=== PATIENT | male | born 1970 | race Caucasian/White ===

== ENCOUNTER → 2017-07-05 | Outpatient (CLI) | payer OTHER ==
--- NOTE | 2017-07-05 12:30 | DIAGNOSTIC IMAGING REPORT ---
ULTRASOUND TESTES AND SCROTUM CLINICAL HISTORY: Epididymitis/orchitis. COMPARISON STUDY: Scrotal ultrasound dated 08/13/2006. TECHNIQUE: Real-time, grayscale, and color Doppler sonography of the testes and scrotum is performed. Images are reviewed in the transverse and longitudinal planes. FINDINGS: The testes are normal in size and homogeneous in echotexture. The right testis measures 4.0 x 2.0 x 3.3 cm and the left testis measures 4.3 x 2.7 x 3.0 cm. No intratesticular mass is seen. A calcification is noted in the left testis. Testicular blood flow is normal and symmetric. Normal Doppler waveforms are identified in both testes. The epididymal heads are normal in appearance. A 2 mm epididymal head cyst is noted on the left. No hyperemia is seen on color imaging. No varicocele or hydrocele is seen. IMPRESSION: Unremarkable sonographic assessment of the testes and scrotum. Electronically signed by: Vic Acosta M.D. 07/05/2017 12:29 PM Dictated Date/Time: 07/05/2017 12:26 PM
--- NOTE | 2017-07-05 12:36 | DIAGNOSTIC IMAGING REPORT ---
ABDOMEN FOR HERNIA CLINICAL HISTORY: Orchitis and epididymitis. Evaluate for inguinal hernia. COMPARISON STUDY: No previous studies for comparison. FINDINGS: A few benign right inguinal lymph node were noted. No right or left inguinal hernia was identified. IMPRESSION: No right or left inguinal hernia identified by sonography. Electronically signed by: Gray Caldwell M.D. 07/05/2017 12:35 PM Dictated Date/Time: 07/05/2017 12:33 PM
== END | disposition home or self-care (01) ==
LOC: C.ULTR 11:31
PROVIDERS: ATTEND Urology
DX: N45.3 Epididymo-orchitis (principal)

== ENCOUNTER → 2017-07-30 | Outpatient (CLI) | payer OTHER ==
--- NOTE | 2017-07-30 11:02 | DIAGNOSTIC IMAGING REPORT ---
ABDOMEN AND PELVIS CT WITHOUT CONTRAST CT DOSE: 423.46 mGy.cm HISTORY: Lower abdominal pain. DYSURIA TECHNIQUE: Multiaxial CT images of the abdomen and pelvis were performed without contrast. A dose lowering technique was utilized adhering to the principles of ALARA. COMPARISON STUDY: None. FINDINGS: The lung bases are clear. No pneumoperitoneum. No pneumatosis. Evidence for prior vasectomy. No suspicious lytic or blastic osseous lesions. Tiny fat-containing umbilical hernia. The unenhanced liver, gallbladder, spleen, adrenal glands, pancreas, and left kidney are unremarkable. There is a 1 mm stone within the upper pole the right kidney. No ureteral stones. No hydronephrosis. Normal bladder. No retroperitoneal lymphadenopathy. No pelvic free fluid. The prostate gland is normal in size. Suboptimal evaluation for bowel pathology due to the lack of intravenous and oral contrast. However, there is no definite bowel wall thickening or obstruction. Normal appendix. IMPRESSION: 1. A punctate stone within the upper pole of the right kidney. No ureteral stones. No hydronephrosis. 2. No bowel wall thickening or obstruction. 3. Normal appendix. 4. Tiny fat-containing umbilical hernia. Electronically signed by: Brandin Sepulveda M.D. 07/30/2017 11:00 AM Dictated Date/Time: 07/30/2017 10:50 AM
== END | disposition home or self-care (01) ==
LOC: C.CTS 10:05
PROVIDERS: ATTEND Urology
DX: R30.0 Dysuria (principal); R10.9 Unspecified abdominal pain

== ENCOUNTER 2023-10-25 06:04 | Observation (INO) ==
--- NOTE | 2023-10-14 15:38 | Anesthesiology Consultation ---
Date of Service October 14, 2023 Assessment & Plan (1) Encounter for pre-operative examination: - check type and screen STAT am DOS. - medical clearance 09/20/23: "...cervical fusion...no symptoms of chest pain at rest or with exertion, dyspnea at rest or with exertion...reasonable fadi operative risk to proceed..." - Per clinical nurse educator on 10/14/23: No known infectious disease contacts, current infectious disease symptoms in past 10 days or COVID positive test result in the past 30 days. Chart Review Chart Review: Acceptable Risk for Surgery and Patient NOT seen in Pre Admission Testing History Surgery Operation Date: 10/25/23 10:05 Proposed Procedures p C4-C5 and C7-T1 Anterior Cervical Discectomy and Fusion Hardware Removal C5-C7 - Benedicto Lovell, Height/Weight Height: 5 ft 9 in Weight: 90.718 kg Allergies Allergy/AdvReac Type Severity Reaction Status Date / Time No Known Drug Allergies Allergy Verified 10/14/23 14:55 Medications Home Medications Medication Instructions Recorded Confirmed Last Taken atorvastatin 20 mg tablet 20 mg PO HS 10/14/23 10/14/23 Unknown Past Medical History Medical History (Updated 10/14/23 @ 15:33 by Jennifer Noland PA-C) Cervical facet syndrome Cervicalgia ROM "is limited to the left side" Chronic scapular pain Dysphagia "only with large pills, has trouble swallowing since neck surgery" Hyperlipidemia IBS (irritable bowel syndrome) Nausea after anesthesia Neuropathy of left suprascapular nerve Past Family History Family History Father Hearing loss Past Surgical History Surgical History History of esophagogastroduodenoscopy (EGD) History of mandibular surgery early , no limitations w/his jaw since surgery Hx of anterior cruciate ligament tear reconstruction left knee Hx of arthroscopy of right knee meniscus repair Hx of colonoscopy age 43 for last one S/P cervical spinal fusion C4-C6, ~2011 Social History Smoking Status: Never smoker Do You Dip or Chew Tobacco: No Hx Alcohol Use: Yes Alcohol type: beer alcohol intake frequency: holidays/special occasions only Hx Substance Use: No substance use type: does not use Lab Results Anesthesia Preop Results Results Anesthesia Widget: WBC 7.22 K/ul (4.8-10.8) 09/18/23 Hgb 15.6 g/dl (14.0-18.0) 09/18/23 Hct 44.7 % (42.0-52.0) 09/18/23 Plt 249 K/uL (130-400) 09/18/23 Na 137 mmol/L (136-145) 09/18/23 K 4.2 mmol/L (3.5-5.1) 09/18/23 Cl 101 mmol/L (98-107) 09/18/23 CO2 28 mmol/L (21-32) 09/18/23 BUN 23 mg/dl (6-23) 09/18/23 Creat 1.42 mg/dl (0.6-1.4) H 09/18/23 Glucose Level 107 mg/dl (70-99(Fasting)) H 09/18/23 PT 11.4 Seconds (9.0-12.0) 09/18/23 INR 1.1 (0.9-1.1) 09/18/23 Testing Electrocardiogram Date: 09/20/23 NSR, rate 70 bpm Nonspecific T wave abnormality Chest X-Ray Date: 09/18/23 No acute cardiopulmonary findings. Cervical Spine Date: 09/10/23 x-ray 1. No acute fracture or subluxation. 2. Degenerative and postoperative changes as above, better evaluated on the MRI exam from 05/16/2023. MRI 1. Status post C5-C7 anterior discectomy and fusion. 2. Slight progression of moderate multilevel degenerative changes within the cervical spine. Mild central canal stenosis at C4-C5 which has slightly increased. 3. Severe multilevel neural foraminal stenosis due to uncovertebral hypertrophy and facet arthrosis, as detailed above. Other Testing Head MRA 10/27/19 No significant stenosis, occlusion, or aneurysm within the [place]. Carotid doppler 10/27/19 1. There is no sonographic evidence of hemodynamically significant stenosis in the right or left carotid arterial system. 2. Antegrade flow is shown in the vertebral arteries.
--- OUTSIDE RECORDS SUMMARY | 2023-10-25 06:23 | External Medical Summary | Continuity of Care Document ---
Author Name Unknown Organization [address] Address [address] [place] [phone] Care Team Providers Care Dump Motor Operator Name Role Phone Lois Verdugo Primary Care Physician [phone] Encounter [facility] [id number] Date(s): 09/20/23 - 09/20/[address] [place] [address], [address] [place] [address] [place] [phone] Encounter Diagnosis Preop testing(Discharge Diagnosis) - 09/19/23 Discharge Disposition: Home or Self Care Attending Physician: MD Verdugo Ravishankar E Referring Physician: MD Verdugo Ravishankar E Allergies, Adverse Reactions, Alerts No Known Allergies Immunizations Given and Recorded Vaccine Date Status Refusal Reason tetanus/diphtheria/pertuss, acel (Tdap) 1 12/05/21 Given tetanus/diphtheria/pertuss, acel (Tdap) 2 03/31/12 Given influenza virus vaccine, inactivated 12/05/21 Give n influenza virus vaccine, inactivated 01/01/18 Give n zoster vaccine, inactivated 3 12/27/20 Given zoster vaccine, inactivated 4 10/24/20 Given 1Result Comment: charla brooks cma 2Result Comment: VIS Date 04/17/2011 3Result Comment: PN2L3 01/29/2022 verified by Robert Yuen LPN 4Result Comment: Kait Briceño LPN Medications atorvastatin 20 mg oral tablet Start: 11/19/22 3:42:00 PM EDT, 1 tab, PO, qhs, Disp# 90 tab, Refills: 3, [facility] Start Date: 11/19/22 Stop Date: 11/14/23 Status: Ordered Problem List Condition Confirmation Course Effective Dates Status H ealth Status Informant Bulge of cervical disc without myelopathy Confirmed Active Sinobronchitis Confirmed Active Depression Confirmed Active Diarrhea Confirmed Active Diverticulosis Confirmed Active Dyslipidemia Confirmed Active Early satiety Confirmed Active Epigastric pressure Confirmed Active Epigastric cramping Confirmed Active Fatigue Confirmed Active GERD with esophagitis Confirmed Active GERD (gastroesophageal reflux disease) Confirmed Active History of IBS Confirmed Active IRRITABLE BOWEL SYNDROME Confirmed Active Lactose intolerance Confirmed Active Loose stools Confirmed Active Prostatitis Confirmed Active Restless legs syndrome (RLS) Confirmed Active Elevated serum creatinine Confirmed Active Swollen abdomen Confirmed Active Weight disorder Confirmed Active Diagnosis Diagnosis Type Effective Dates Health Status Cl inical Service Informant Preop testing Discharge Diagnosis 09/19/23 Non-Specified Procedures Procedure Date Related Diagnosis Body Site Status Esophagogastroduodenoscopy 1 08/21/18 Completed Upper GI endoscopy 2 08/21/18 Comp leted Colonoscopy 3, 4 10/22/13 Complete d Esophagogastroduodenoscopy 5 10/22/13 Completed Herniated disc, cervical repair 6 06/23/12 Completed ACL repaired Completed Arthroscopy Completed jaw surgery Completed 1EGD grade B erosive esophagitis bx, 4 cm HH 2Impressions: z-line irregular, 40 cm from the incisors LA Grad B erosive esophagitis. Biopsied 4cm hiatal hernia Normal stomach Normal examined duodenum The examination was otherwise normal. 3AC path normal. repeat colonoscopy 10 years recommended 4Dr Marielena, Exam to TI, mild diverticulosis sigmoid, random AC biopsies taken 54 cm HH, Grade A esophagitis, schatzkis ring; path EG jxn, antrum, and 3rd portion duodenum all normal; 7Q5-5-4-4 Social History Social History Type Response Smoking Status Never smoked cigaret faisal Sex Radiology * Contributor_system, MUSE01: VERIFY, PERFORM Event Display: EKG Authored Date: Please click on link to see image. Patient Care team information Care Team Personnel Name: MD Kartik, Lois Khan Position: Physician Member Role: Primary Care Provider Address: Address: [address] [place] [address], [place] [address] Care Team Related Persons Name: WOLFGANG LOPES Address: [place] Address: home [address] [place] [address] [address] [place] [place], [place] [phone] Name: GRACE LOPES Address: [place] Address: home [address] [facility] [place] [phone] Name: EDILMA LOPES Address: home [address] [facility] [place] [phone] Name: TERENCE LOPES Address: [place] Address: home [address] [facility] [place] [phone]
--- OUTSIDE RECORDS SUMMARY | 2023-10-25 06:24 | External Medical Summary | Continuity of Care Document ---
Author Name Unknown Organization [address] Address [address] [place] [phone] Care Team Providers Care Boat Joiner Helper Name Role Phone Lois Verdugo Primary Care Physician [phone] [id number] Date(s): 09/16/23 - 09/16/[address] [place] [address], [address] [place] [address] [phone] Encounter Diagnosis Pre-op evaluation(Discharge Diagnosis) - 09/16/23 Discharge Disposition: Home or Self Care Attending Physician: MD Verdugo Ravishankar E Referring Physician: MD Verdugo Ravishankar E Allergies, Adverse Reactions, Alerts No Known Allergies Assessment and Plan Extracted from: Title:Pre-Op Visit Author:DO Foley Ravin Date: 09/16/23 1.Pre-op evaluation Patient is seen for preoperative evaluation. They report no symptoms of chest pain at rest or with exertion, dyspnea at rest or with exertion. Patient has not history of IHD, CHF, CVD, diabetes, recent anticoagulant or antithrombotic use, personal or family history of coagulopathy. CBC BMP and PT/INR ordered UA and MRSA swab taken today Immunizations Given and Recorded Vaccine Date Status Refusal Reason tetanus/diphtheria/pertuss, acel (Tdap) 1 12/05/21 Given tetanus/diphtheria/pertuss, acel (Tdap) 2 03/31/12 Given influenza virus vaccine, inactivated 12/05/21 Give n influenza virus vaccine, inactivated 01/01/18 Give n zoster vaccine, inactivated 3 12/27/20 Given zoster vaccine, inactivated 4 10/24/20 Given 1Result Comment: charla grubbs pharmacologist 2Result Comment: VIS Date 04/17/2011 3Result Comment: PN2L3 01/29/2022 verified by Robert Yuen LPN 4Result Comment: Kait Briceño LPN Medications atorvastatin 20 mg oral tablet Start: 11/19/22 3:42:00 PM EDT, 1 tab, PO, qhs, Disp# 90 tab, Refills: 3, [facility] Start Date: 11/19/22 Stop Date: 11/14/23 Status: Ordered Mental Status 09/16/23 Barriers to Learning one year None evide nt Mandatory Health Literacy Documentation Yes Health Literacy Communication Barriers N ever Primary Language British Problem List Condition Confirmation Course Effective Dates [...] Diagnosis Diagnosis Type Effective Dates Health Status Clinical Service Informant Pre-op evaluation Discharge Diagnosis 09/16/23 Non-Specified Procedures Procedure Date Related Diagnosis Body [...] antrum, and 3rd portion duodenum all normal; 9E7-7-1-5 Results Laboratory List Name Date Urinalysis with Microscopic if Indicatd. (Urinalysis with Microscopic if Indicatd-ARLN) 09/16/23 Most recent to oldest [Reference Range]: 1 Color [facility] [YELLOW] YELLOW 1 (09/16/23 2:28 PM) Appearance [facility] [CLEAR] CLEAR 2 (09/16/23 2:28 PM) Specific Ruso [facility] [1.001-1.035] 1.006 3 (09/16/23 2:28 PM) pH [facility] [5.0-8.0] 5.5 4 (09/16/23 2:28 PM) Glucose [facility] [NEGATIVE-NEGATIVE] NEG ATIVE 5 (09/16/23 2:28 PM) Bilirubin [facility] [NEGATIVE-NEGATIVE] N EGATIVE 6 (09/16/23 2:28 PM) Ketones [facility] [NEGATIVE-NEGATIVE] NEG ATIVE 7 (09/16/23 2:28 PM) Occult Blood [facility] [NEGATIVE-NEGATIVE ] NEGATIVE 8 (09/16/23 2:28 PM) Protein [facility] [NEGATIVE-NEGATIVE] NEG ATIVE 9 (09/16/23 2:28 PM) Nitrite [facility] [NEGATIVE-NEGATIVE] NEG ATIVE 10 (09/16/23 2:28 PM) Leuk Est [facility] [NEGATIVE-NEGATIVE] NE GATIVE 11 (09/16/23 2:28 PM) 1Result Comment: Specimen Received d/t: 09/17/2023 23:50:00 Lab test performed by: [facility] [employer] [address] [place] [phone] Nadir Green MD 2Result Comment: Specimen Received d/t: 09/17/2023 23:50:00 Lab test performed by: [facility] [employer] [address] [place] [phone] Nadir Green MD 3Result Comment: Specimen Received d/t: 09/17/2023 23:50:00 Lab test performed by: [facility] [employer] [address] [place] [address] [address] [address] Nadir Green MD 4Result Comment: Specimen Received d/t: 09/17/2023 23:50:00 Lab test performed by: [facility] [employer] [phone] Green MD 5Result Comment: Specimen Received d/t: 09/17/2023 23:50:00 Lab test performed by: [facility] [employer] [facility] [place] [address]Eliane Green MD 6Result Comment: Specimen Received d/t: 09/17/2023 23:50:00 Lab test performed by: [facility] [employer] [facility] [place] [address] [address]Eliane Green MD 7Result Comment: Specimen Received d/t: 09/17/2023 23:50:00 Lab test performed by: [facility] [address] [place] Marisela Green MD 8Result Comment: Specimen Received d/t: 09/17/2023 23:50:00 Lab test performed by: [facility] [place] [address] [place] [address]Eliane Green MD 9Result Comment: Specimen Received d/t: 09/17/2023 23:50:00 Lab test performed by: [facility] [employer] [facility] [address] [place] Marisela Green MD 10Result Comment: Specimen Received d/t: 09/17/2023 23:50:00 Lab test performed by: [facility] [place] [address] [address] [place] Marisela Green MD 11Result Comment: Specimen Received d/t: 09/17/2023 23:50:00 Lab test performed by: [facility] [place] Marisela Green MD Vital Signs Most recent to oldest [Reference Range]: 1 Patient Weight 93 kg (09/16/23 12:55 PM) Heart Rate 73 bpm (09/16/23 12:55 PM) Respiratory Rate 20 br/min (09/16/23 12:55 PM) Blood Pressure 124/84mmHg (09/16/23 12:55 PM) Social History Social History Type Response Smoking Status Never smoked cigaret faisal Sex FCM Outpt Note * MD Verdugo Ravishankar E: MODIFY MD Verdugo Ravishankar E: MODIFY, MODIFY, PERFORM DO Foley Ravin: PERFORM Event Display: FCM Outpt Note Authored Date: [id number] Chief Complaint pre-op for cervical fusion on October 15, having done in [facility] - Dr. Rachel Luong History of Present Illness 53 year old male coming in for pre-operative exam before on October 16, 2023. Pre-op for cervical fusion on October 15, having done in [facility] - Dr. Rachel Luong planning for c3/4 and c6/7 fusion for cervical radiculopathy Medications: Atorvastatin 20mg, Esomeprazole 40mg, Sertraline 50mg Not on any DOAC, Antiplatelet no hx ofadverse issues with surgery in the past Physical Exam Vitals & Measurements HR:73(Monitored) RR:20 BP:124/84 SpO2:98% WT:93kg WT:93.000kg(Dosing) GENERAL APPEARANCE: The patient is alert, oriented and in no acute distress. VITALS: As above. HEENT: Head is normocephalic/atraumatic. PERRL, EOM-I. Oropharynx clear without lesions. NECK: Supple without lymphadenopathy. Thyroid wnl. CARDIOVASCULAR: Regular rate and rhythm, no m/r/g. LUNGS: Clear to auscultation bilaterally. No wheezes/rales/rhonchi. ABDOMEN: Soft, nontender, nondistended with normal bowel sounds. No rebound/guarding. EXTREMITIES: No cyanosis, clubbing or edema. NEUROLOGICAL: Grossly non-focal exam. SKIN: Warm and dry without any rash. Assessment/Plan 1.Pre-op evaluation Patient is seen for preoperative evaluation. They report no symptoms of chest pain at rest or with exertion, dyspnea at rest or with exertion. Patient has not history of IHD, CHF, CVD, diabetes, recent anticoagulant or antithrombotic use, personal or family history of coagulopathy. CBC BMP and PT/INR ordered UA and MRSA swab taken today Attestation ATTENDING PHYSICIAN ATTESTATION: I saw the patient and confirmed izaguirre portions of the history and physical exam and agree with the resident impression and plan as above. Dr. Lois Verdugo MD Problem List/Past Medical History Ongoing Bulge of cervical disc without myelopathy Depression Diarrhea Diverticulosis Dyslipidemia Early satiety Elevated serum creatinine Epigastric cramping Epigastric pressure Fatigue GERD (gastroesophageal reflux disease) GERD with esophagitis History of IBS IRRITABLE BOWEL SYNDROME Lactose intolerance Loose stools Prostatitis Restless legs syndrome (RLS) Sinobronchitis Swollen abdomen Weight disorder Procedure/Surgical History Upper GI endoscopy| Service Date: 08/21/2018Esophagogastroduodenoscopy| Service Date: 08/21/2018Esophagogastroduodenoscopy| Service Date: 10/22/2013Colonoscopy| Service Date: 10/22/2013Herniated disc, cervical repair| Service Date: 06/23/2012CL repairedArthroscopyjaw surgery Medications amoxicillin-clavulanate(Augmentin 875 mg-125 mg oral tablet), 1 tab, PO, q12h atorvastatin(atorvastatin 20 mg oral tablet), 20 mg= 1 tab, PO, qhs, 3 refills esomeprazole(NexIUM 40 mg oral delayed release capsule), 40 mg= 1 cap, PO, Daily, 3 refills sertraline(sertraline 50 mg oral tablet), 50 mg= 1 tab, PO, Daily, 3 refills Allergies NKA Social History Smoking Status Never smoked cigarettes Alcohol - No Risk Exercise - Regular exercise Substance Abuse - No Risk Tobacco - No Risk Use:Never smoker Family History Hypertension..: Father. Stroke: Negative: Father. Health Status Family Member(s) Mother: History is negative Immunizations Vaccine Date Status tetanus/diphtheria/pertuss, acel (Tdap) 12/05/2021 Given Comments : charla grubbs cma influenza virus vaccine, inactivated 12/05/2021 Given zoster vaccine, inactivated 12/27/2020 Given Comments : PN2L3 01/29/2022 verified by Robert Yuen LPN zoster vaccine, inactivated 10/24/2020 Given Comments : Kait Briceño LPN influenza virus vaccine, inactivated 01/01/2018 Given tetanus/diphtheria/pertuss, acel (Tdap) 03/31/2012 Given Comments : VIS Date 04/17/2011 Recommendations Health Maintenance Pending(in the next year) OverDue Adult Influenza Vaccine due09/21/22and every 1year Due Adult COVID-19 Vaccination due09/16/23Unknown Frequency Adult Social Determinants of Health Screening due09/16/23Unknown Frequency Due In Future Colorectal Cancer Screening not due until10/20/23and every 10year Body Mass Index not due until09/02/24and every 366day Satisfied(in the past 1 year) Satisfied Body Mass Index on11/19/22.Satisfied by NIA Grubbs Sara Electronic Signature on File Electronically Reviewed/Signed by: Devendra Foley DO Author Signature Dt/Tm:09/16/2023 01:41 PM Resident Division of Sports Medicine Electronically Reviewed/Signed by: Lois Verdugo MD Cosigner Signature Dt/Tm: 09/16/2023 01:48PM Department of Family Medicine RP Patient Care team information Care Team Personnel Name: MD Kartik, Lois Khan Position: Physician Member Role: Primary Care Provider Address: Address: [address] [place] [address] [place] Care Team Related Persons Name: WOLFGANG LOPES Address: [place] Address: [address] [place] [phone] Name: GRACE LOPES Address: [place] Address: [address] [phone] Name: EDILMA LOPES Address: home [address], [place] [phone] Name: TERENCE LOPES Address: [place] Address: [address] [place] [place] [phone]"
[2023-10-25] MEDS: ACETAMINOPHEN 500 MG TAB PO SCH (06:32)
[2023-10-25] MEDS: LR 60ML/HR IV SCH (06:32)
[2023-10-25] MEDS: GABAPENTIN 900 MG DOSE PO SCH (06:32)
[2023-10-25] MEDS: CeleBREX 200 MG CAP PO SCH (06:32)
[2023-10-25] MEDS: LR 15ML/HR IV SCH (06:34)
[2023-10-25] MEDS ORDERED: KETAMINE HCL 10MG/ML SYR ONE (06:49)
[2023-10-25] MEDS ORDERED: MIDAZOLAM HCL 1 MG/ML 2ML VIAL ONE (06:49)
[2023-10-25] MEDS ORDERED: fentaNYL citrate PF 100 MCG/2 ML VIAL ONE ×2 (06:49→09:48)
[2023-10-25] MEDS: APREPITANT 40 MG CAP PO ONE (06:57)
[2023-10-25] MEDS ORDERED: PROPOFOL IV EMULSION 10 MG/ML 20 ML VIAL IV ONE ×3 (07:01→09:07)
[2023-10-25] MEDS ORDERED: ROCURONIUM BROMIDE 10 MG/ML 5 ML VIAL IV ONE ×3 (07:01→09:02)
[2023-10-25] MEDS ORDERED: LIDOCAINE 2% 2 ML VIAL/AMP(20MG/ML) INFIL ONE (07:01)
[2023-10-25] MEDS ORDERED: DEXAMETHASONE SOD INJ 4 MG/ML VIAL ONE (07:01)
[2023-10-25] MEDS ORDERED: HYDROmorphone INJ 2 MG/ML SYR/VIAL IV PRN (07:05)
[2023-10-25] MEDS ORDERED: DROPERIDOL 5 MG/2 ML VIAL IV PRN (07:05)
[2023-10-25] MEDS ORDERED: ATROPINE SULFATE 0.1 MG/ML 10ML SYR IV PRN (07:05)
[2023-10-25] MEDS ORDERED: ePHEDrine sulfate 50 MG/ML AMP IV PRN (07:05)
--- NOTE | 2023-10-25 07:38 | History & Physical Bridge Note ---
Date of Service October 25, 2023 History & Physical Bridge Note I have examined the patient, reviewed the History & Physical and in the interval since the performance of the History & Physical I have noted the following changes of clinical significance: no changes noted
--- NOTE | 2023-10-25 07:39 | History & Physical Report ---
Date of Service October 25, 2023 Assessment & Plan (1) Herniation of cervical intervertebral disc with radiculopathy: Plan: C4-C5 and C7-T1 anterior cervical discectomy and fusion hardware removal C5-C7 History of Present Illness Chief Complaint: Neck and arm pain Primary Care Provider: Catia Lorenzana DO When the patient complains of this consistent neck and bilateral arm pain a failed extensive course of nonoperative care is here for surgical invention. Allergies Allergy/AdvReac Type Severity Reaction Status Date / Time No Known Drug Allergies Allergy Verified 10/25/23 06:23 Home Medications Medication Instructions Recorded Confirmed Type atorvastatin 20 mg tablet 20 mg PO HS 10/14/23 10/25/23 History Past Med/Surg History Problem List (Updated 10/25/23 @ 07:39 by Benedicto Lovell DO) Herniation of cervical intervertebral disc with radiculopathy Encounter for pre-operative examination Chronic scapular pain Achilles tendinitis Otitis externa 10/14/19 Left asymmetrical SNHL Subacromial bursitis of left shoulder joint Left shoulder pain Myofascial pain (Chronic) Cervicalgia (Chronic) Cervical facet syndrome (Chronic) Medical History Cervical facet syndrome Cervicalgia ROM "is limited to the left side" Chronic scapular pain Dysphagia "only with large pills, has trouble swallowing since neck surgery" Hyperlipidemia IBS (irritable bowel syndrome) Nausea after anesthesia Neuropathy of left suprascapular nerve Surgical History History of esophagogastroduodenoscopy (EGD) History of mandibular surgery early , no limitations w/his jaw since surgery Hx of anterior cruciate ligament tear reconstruction left knee Hx of arthroscopy of right knee meniscus repair Hx of colonoscopy age 43 for last one S/P cervical spinal fusion C4-C6, ~2011 Family History Father Hearing loss Social History Smoking Status: Never smoker Second Hand Exposure: No; Do You Dip or Chew Tobacco: No; Tobacco Cessation Education Requested by Patient: No Hx Alcohol Use: Yes Alcohol type: beer Hx Substance Use: No Preferred Language: [place] Verde[place] Communication Ability: Effective Visual Impairment: No Limitations Hearing Ability: Normal [employer] Exchange Architect Required: No Beliefs That Will Affect Care: None marital status: Current Living Situation: Spouse and Family current occupational status: employed 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
[2023-10-25] MEDS: ceFAZolin 2000MG 2,000 MG/15 ML SYR IV SCH ×2 (07:51→15:43)
[2023-10-25] MEDS ORDERED: PHENYLEPHRINE 100MCG/ML 10ML SYR IV ONE (08:55)
[2023-10-25] MEDS ORDERED: ONDANSETRON INJ 2 MG/ML 2 ML VIAL ONE (09:37)
[2023-10-25] MEDS ORDERED: SUGAMMADEX SODIUM 200 MG/2 ML VIAL IV ONE (09:37)
[2023-10-25] MEDS: ceFAZolin 330 MG/ML 1 GM VIAL ONE (09:41)
--- NOTE | 2023-10-25 09:49 | Operative Report ---
Post Operative Report Pre & Post Diagnosis Operation Date: 10/25/23 07:45 Pre-Op Diagnosis: Cervical Myelopathy with Cervical Radiculopathy Post-Op Diagnosis: Cervical Myelopathy with Cervical Radiculopathy I identified the patient and participated in the time-out.: Yes Procedure Operation Date: 10/25/23 07:45 Actual Procedures #1 removal of anterior cervical plate and screws C5-C7. #2 exploration of fusion C5-C7. #3 anterior cervical discectomy with bilateral foraminotomies C4- C5 C7-T1. #4 anterior cervical arthrodesis C4-C5 C7-T1. #5 placement of Spira 9 mm cage filled with os design bone graft at C7-T1. #6 placement of globus plate and allograft filled with os design at C 4 C5. #7 placement is ideation plate and screws across C7-T1. Surgeon Benedicto Lovell, Cutting And Printing Machine Operator Tejas Melgar Estimated Blood Loss 20 Findings Consistent with Post-Op Diagnosis Specimens None Indications This is a 53-year-old male known to me presents above-mentioned diagnosis of failed course of nonoperative care is here for surgical invention. Description of Procedure Patient was met with identified informed consent obtained. Patient was then taken to the operative suite underwent patient placed in a supine position on the Eb table with a head Valadez tunnel heading supervisor. All bony promises well- padded eyes inspected to ensure no external pressure placed upon the. This point the anterior cervical spine was prepped and draped in a sterile fashion. A longitudinal incision was then placed along the right anterior aspect of the cervical spine extending from C4-C7. Self-retaining retractors placed. Blunt dissection with the assistance of bipolar cautery is then performed down to and exposing the anterior cervical spine from C4-T1. I then proceeded to remove the plate from C5-C7. Explored the fusion mass noting to be mature and intact at each level. I then performed a complete discectomy of C7-T1 out to the uncovertebral notch bilaterally. Catano distracting pins utilized to assist in visualization. Removed all posterior annular fibers longitudinal ligament kirit ateral foraminotomies were performed. Endplates burred to subcortical bleeding bone and a Spira 9 mm cage filled with os design bone graft tapped in position. Distracting apparatus was removed and a plate and screws was then applied with the assistance of fluoroscopy. The proceeded to C4-C5 and again complete discectomy performed out to the uncovertebral notch bilaterally. Catano distracting pins again utilized. Removed all posterior annular fibers longitudinal ligament bilateral foraminotomies were performed. Endplates were to subcortical bleeding bone and a globus 7 mm coalition implant and plate tapped into position and screwed into place. The incision was then copiously irrigated explored to ensure no damage to surrounding structures remaining bleeding. 10 round YESI drain inserted. The incision was then closed with 2 Vicryl in the fascia and 4 Monocryl for final closure. Steri-Strips sterile dressing placed. Patient awakened taken the PACU stable condition. Please note spinal cord monitoring was utilized at the procedure no changes noted. Tejas Melgar was present throughout the entire procedure and on the patient positioning complex portion of the surgery and final skin closure. Im ordering 10 grams of Triple Oblong Collagen Powder (Social[employer] [id number]) to treat an incision wound that was caused by a spine procedure. The incision is approximately 2 cm(W) x 4 cm(L) into the joint (D) in size and is a full thickness wound. Triple Oblong collagen comes in 1 gram packets so 10 packets were ordered. Given the size of the wound, with light to moderate exudate I chose to order a 10 day supply. The patient will be provided instructions for proper application of the collagen wound kit. The patient will be asked to apply the collagen powder daily and then cover it with sterile dressings dispensed. Collagen was selected as I expect the collagen to attract monocytes and fibroblasts, act as a sacrificial substrate for MMPs, and ultimately proved a matrix for tissue and vessel growth. The collagen will act as a primary dressing in this scenario. It is medically necessary for proper healing of these wounds to improve bioavailability and contact with each wound surface, this is also to help prevent infection of wounds and promote healing ultimately leading to a better healing outcome and limit the risk of infection. I attest to the content of the Intraoperative Record and any orders documented therein. Any exceptions are noted below.
--- NOTE | 2023-10-25 10:21 | Fluoroscopy Report ---
FL cervical 2-3V CLINICAL HISTORY: C4-C5 C7-T1 ACDF COMPARISON STUDY: MRI cervical spine 05/16/2023 FLUOROSCOPY TIME: 18.7 seconds FLUOROSCOPY IMAGES: 3 EXPOSURE DOSE: 3.88 mGy FINDINGS: Endotracheal tube noted in addition to a surgical drainage catheter. There are at least 2 s urgical sponges noted on the lateral images, not seen on the frontal view. Note that the images were submitted following completion of the surgery. Study is limited secondary to obscuring soft tissue. Anterior plate and screw fusions noted at what appears to be the C4-C5 and C7-T1 levels. IMPRESSION: Fluoroscopic assistance as above. ACT 112: Negative or not required by law. Electronically signed by: Kuldip Steele M.D. 10/25/2023 10:19 AM
[2023-10-25] MEDS ORDERED: ONDANSETRON INJ 2 MG/ML 2 ML VIAL IV PRN (11:41)
[2023-10-25] MEDS ORDERED: LORazepam 0.5 MG TAB PO PRN (11:41)
[2023-10-25] MEDS ORDERED: oxyCODONE HCL IR 5 MG TAB (IMMEDIATE RELEASE) PO PRN (11:41)
[2023-10-25] MEDS ORDERED: PROMETHAZINE HCL 12.5 MG in SODIUM CHLORIDE 0.9% 50 ML IV PRN (11:41)
[2023-10-25] MEDS ORDERED: NALOXONE HCL 0.4 MG/1 ML VIAL/CARP IV PRN (11:41)
[2023-10-25] MEDS ORDERED: RACEPINEPHRINE 2.25% NEBU SOLN 0.5 ML VIAL INH PRN (11:41)
[2023-10-25] MEDS ORDERED: ONDANSETRON 4 MG OD TAB PO PRN (11:41)
[2023-10-25] MEDS ORDERED: DO NOT ADMINISTER PNEUMOCOCCAL VACCINE PRN (11:41)
[2023-10-25] MEDS ORDERED: hydrOXYzine HCl 25 MG TAB PO PRN (11:41)
[2023-10-25] MEDS ORDERED: METOCLOPRAMIDE HCL INJ 5 MG/ML 2 ML VIAL IV PRN (11:41)
[2023-10-25] MEDS ORDERED: FAMOTIDINE 20 MG TAB PO PRN (11:41)
[2023-10-25] MEDS ORDERED: SOD PHOSPHATE/SOD BIPHOSPHATE ENEMA 132 ML BTL PR PRN (11:41)
[2023-10-25] MEDS ORDERED: MAGNESIUM HYDROXIDE SUSP 30 ML UDC PO PRN (11:41)
[2023-10-25] MEDS ORDERED: ACETAMINOPHEN 500 MG TAB PO PRN (11:41)
[2023-10-25] MEDS ORDERED: DO NOT ADMINISTER FLU VACCINE PRN (11:41)
[2023-10-25] MEDS ORDERED: dexAMETHasone 8 MG in SYRINGE 0 ML IV PRN (11:41)
[2023-10-25] MEDS ORDERED: HYDROmorphone INJ 0.5 MG/0.5 ML SYR IV PRN (11:41)
[2023-10-25] MEDS ORDERED: bisacodyL 10 MG SUPP PR PRN (11:41)
[2023-10-25] MEDS ORDERED: ACETAMINOPHEN 1,000 MG/100 ML VIAL IV PRN (11:41)
[2023-10-25] MEDS ORDERED: LORazepam 0.5 MG in SYRINGE 0.25 ML IV PRN (11:41)
[2023-10-25] MEDS ORDERED: HYDROmorphone INJ 1 MG/ML SYRINGE IV PRN (11:41)
[2023-10-25] MEDS ORDERED: diphenhydrAMINE Capsule 25 MG CAP PO PRN (11:41)
[2023-10-25] MEDS: LACTATED RINGER'S 1,000 ML IV SCH (11:56)
--- NOTE | 2023-10-25 12:37 | Anesthesiology Progress Note ---
Date of Service October 25, 2023 Anesthesia Post Procedure Vital Signs Vital Signs: Temp Pulse Pulse Pulse Resp BP BP 10/25/23 12:30 36.6 C 77 16 136/89 10/25/23 12:00 36.4 C L 78 14 148/88 H 10/25/23 11:45 74 16 10/25/23 11:30 10/25/23 11:30 36.4 C L 79 14 139/96 10/25/23 11:20 74 12 141/86 H 10/25/23 11:10 36.5 C 76 14 141/94 H 10/25/23 11:00 75 12 138/90 10/25/23 10:50 71 10 L 159/94 H 10/25/23 10:40 71 9 L 133/85 10/25/23 10:30 70 10 L 133/85 10/25/23 10:20 66 8 L 111/75 10/25/23 10:10 36.0 C L 64 10 L 115/65 10/25/23 06:24 36.4 C L 80 20 150/91 H Pulse Ox Pulse Ox O2 Del Method O2 Del Method O2 Flow Rate 10/25/23 12:30 95 Room Air 10/25/23 12:00 94 Room Air 10/25/23 11:45 95 Room Air 10/25/23 11:30 95 Room Air 10/25/23 11:30 95 Room Air 10/25/23 11:20 95 Room Air 10/25/23 11:10 95 Room Air 10/25/23 11:00 97 Room Air 10/25/23 10:50 97 Oxymask 9 10/25/23 10:40 97 Oxymask 9 10/25/23 10:30 96 Oxymask 9 10/25/23 10:20 95 Oxymask 9 10/25/23 10:10 93 Oxymask 9 10/25/23 06:24 97 Room Air Pain Intensity Bilateral Neck: Pain Intensity: 8 Transfer of Care Handoff Completed per policy Notes Mental Status: alert / awake / arousable Patient Amnestic to Procedure: Yes Nausea / Vomiting: adequately controlled Pain: adequately controlled Airway Patency, RR, SpO2: stable & adequate BP & HR: stable & adequate Hydration State: stable & adequate Anesthetic Complications: no major complications apparent and Pt Satisfied with anesthetic care
[2023-10-25] MEDS: traMADol HCL 50 MG TABLET PO PRN (17:48)
[2023-10-25] MEDS ORDERED: CYCLOBENZAPRINE HCL 10 MG TAB PO PRN (18:51)
[2023-10-25] MEDS: DOCUSATE SODIUM/SENNA 50/8.6MG TAB PO SCH (19:53)
[2023-10-25] MEDS: ATORVASTATIN 20 MG TAB PO SCH (19:53)
[2023-10-26] MEDS: POLYETHYLENE (MIRALAX) 17 GM PACK PO SCH (05:31)
[2023-10-26] MEDS: dexAMETHasone 6 MG in SYRINGE 0 ML IV SCH (08:26)
[2023-10-26 08:31] VITALS: TEMP 97.5
[2023-10-26] MEDS: ALUMINUM/MAGNESIUM SUSP 30 ML UDC PO PRN (09:31)
[2023-10-26 10:29] VITALS: BP 129/71; PULSE 68; RESP 16; O2SAT 98
--- NOTE | 2023-10-26 10:41 | Discharge Summary ---
Date of Service October 26, 2023 Admission HPI Per Admitting Provider When the patient complains of this consistent neck and bilateral arm pain a failed extensive course of nonoperative care is here for surgical invention. Principal Diagnosis Cervical spinal stenosis with radiculopathy Discharge Data Allergies Allergy/AdvReac Type Severity Reaction Status Date / Time No Known Drug Allergies Allergy Verified 10/25/23 06:23 Procedures Performed Operation Date: 10/25/23 07:45 Actual Procedures p C4-C5 and C7-T1 Anterior Cervical Discectomy and Fusion, C5-C7 Hardware Removal, Spinal Cord Monitoring(Not Applicable) - Benedicto Lovell DO Ordered Studies 10/25/23 07:00 FL cervical 2-3V Routine Hospital Course (1) Herniation of cervical intervertebral disc with radiculopathy: Patient 1 anterior cervical discectomy and fusion tolerated cells taken to orthopedic for postoperative. Postop General no swallowing well. No hoarseness. Pain well-controlled. YESI drain decreasing appropriate. Excellent strength testing. Subsidy discharged home. Discharge orders instructions from the chart for further review. Total Time Total Time Spent Total Time Spent (In Minutes): 20 minutes Discharge Plan Discharge Items Patient Disposition: Home - Self-Care Reason For Visit: Cervical Myolopathy with Cervical Radiculopathy, R Discharge Diagnosis: Cervical spinal stenosis with radiculopathy Activity: As commented below Non-emergency contact: Primary Care Provider Call non-emergency contact if: you have any medication questions Follow-up/Referrals: Catia Lorenzana DO [Primary Care Provider] - Diet: Regular Addtl Attending Provider Instructions: ACTIVITY RECOMMENDATIONS: SELF CARE INSTRUCTIONS AFTER CERVICAL FUSIONS 1. No smoking. Smoking drastically decreases the chance of a solid fusion. 2. No bending, lifting more than 5 pounds, or twisting (roll like a log when turning in bed). 3. You may shower 3 days after surgery. Thoroughly dry wound. Do not soak in the tub. 4. Cervical collar: Must be worn at all times including sleeping. You may remove the brace only to bath, eat and if you are sitting in a recliner. 5. Please walk as much as you can for exercise. Gradually increase the distance that you walk as your endurance increases. SPECIAL CARE INSTRUCTIONS: VERY IMPORTANT TO READ AND REVIEW A. Do not take any anti-inflammatory medications (i.e. Indocin, Advil, Aspirin, Naprosyn, Aleve, Motrin, etc.) as these may inhibit the chance of a solid fusion. Tylenol is okay to take. B. Your surgical incision has been closed with a cosmetic suture under the skin that will dissolve in about 6 weeks. In 14 days, you can use a pair of clean scissors and cut the suture that is left outside of the skin at the ends of your incision. C. Complications are uncommon, but please contact us if you have any signs or symptoms of: 1. wound infection (fever higher than 102.5 degrees F, redness, separation of wound, drainage, or increasing pain from the incision) 2. blood clots in legs (pain, swelling, redness and warmth in legs) 3. urinary tract infection (fever higher than 102.5 degrees, burning upon urination or increased frequency of urination) 4. nerve problems (inability to walk on your toes or heels, numbness, loss of bowel or bladder control) 5. any other symptoms that concern you. D. Please call the office at if you have any concerns or questions about your operation or recovery. MANAGING PAIN AFTER SPINAL SURGERY 1. Narcotic medication is intended for short-term use and will be provided for surgical pain. Surgical pain usually lasts for a period of 4-6 weeks. Narcotic medication includes Percocet, Vicodin, Darvocet, Tylenol #3 or Lortab. 2. Longer-term pain is more appropriately treated with non-narcotic medication such as Tylenol ES. 3. Muscle spasm is not appropriately treated with narcotics. Muscle relaxers such as Soma, Flexeril or Skelaxin can be used along with Tylenol ES. 4. Remember that we all live with some "aches and pains". This is not unusual or uncommon after an injury or as we get older. 5. We will provide appropriate medication within the normal guidelines of their prescribed use. We will also be very cautious and aware of potential abuse and extended duration of patients' medication needs. 6. Please allow 2-3 days to process refills. Prescriptions will not be mailed but must be picked up at the office. FOLLOW UP VISIT: Keep your scheduled follow-up appointment. Any questions, please call the office at . Pending Studies at Discharge: No Stand-Alone Forms: [facility] Medications and DC Order Prescriptions: New tramadol 50 mg tablet 50 mg PO Q6H PRN (Reason: pain, moderate) Qty: 20 0RF oxycodone 5 mg tablet 5 mg PO Q6H PRN (Reason: pain) Qty: 20 0RF cyclobenzaprine 10 mg Tablet 10 mg PO Q6 PRN (Reason: muscle spasm) Qty: 20 0RF Continued atorvastatin 20 mg tablet 20 mg PO HS Discharge Orders: Discharge Order (Routine); Ordered 10/26/23 Ordered By: Benedicto Lovell Admission Data Admit Date/Time: 10/25/23 09:52 Attending Provider: Benedicto Lovell Admit Provider: Benedicto Lovell Primary Care Provider: Catia Lorenzana
== END 2023-10-26 11:42 | disposition home or self-care (01) | DRG 472 ==
LOC: ASU 06:04 → 3E 06:04 → OBSVTOIN 09:52 → INTOOBSV 09:52